=== PATIENT | female | born 1995 | race American Indian/Alaskan Native ===

== ENCOUNTER 2018-03-09 14:01 | Emergency (ER) | payer BC ==
[2018-03-09 15:02] LABS: Basophils # (Auto) 0.1 K/mm3 (0.0-0.1); Basophils % (Auto) 1.1 % (0.0-1.8); Eosinophils % (Auto) 0.5 % (0.0-4.3); Hematocrit 29.1 % (30.3-42.9); Hemoglobin 9.6 gm/dl (10.1-14.3); Lymphocytes # (Auto) 1.5 K/mm3 (1.2-5.4); Lymphocytes % (Auto) 18.6 % (13.4-35.0); Mean Corpuscular HGB Conc 33 % (30-34); Monocytes # (Auto) 0.6 K/mm3 (0.0-0.8); Monocytes % (Auto) 7.7 % (0.0-7.3); Platelet Count 263 K/mm3 (140-440); Red Blood Count 4.41 M/mm3 (3.65-5.03); Red Cell Distribution Width 18.3 % (13.2-15.2)
[2018-03-09 15:10] LABS: Mean Corpuscular Hemoglobin 22 pg (28-32); Mean Corpuscular Volume 66 fl (79-97)
[2018-03-09 15:16] LABS: BUN/Creatinine Ratio 17; Blood Urea Nitrogen 10 mg/dL (7-17); Calcium 9.4 mg/dL (8.4-10.2); Hemolysis Index 8
[2018-03-09 21:06] VITALS: BP 129/83
--- NOTE | 2018-03-09 21:16 | Emergency Department Report ---
ED General Adult HPI - General Chief complaint: Arrhythmia/Palpitations Stated complaint: ANXIETY ATTACK/ABNORMAL HEART RHYTHM Time Seen by Provider: 03/09/18 20:59 Source: patient Mode of arrival: Ambulatory Limitations: No Limitations - History of Present Illness Severity scale (0 -10): 0 - Related Data Allergies Allergy/AdvReac Type Severity Reaction Status Date / Time No Known Allergies Allergy Unverified 03/09/18 14:15 ED Review of Systems ROS: Stated complaint: ANXIETY ATTACK/ABNORMAL HEART RHYTHM Other details as noted in HPI ED Past Medical Hx - Past Medical History Previous Medical History?: No Additional medical history: Anxiety - Surgical History Past Surgical History?: No - Social History Smoking Status: Current Every Day Smoker Substance Use Type: Alcohol ED Physical Exam - General Limitations: No Limitations ED Course Vital Signs 03/09/18 03/09/18 03/09/18 14:08 19:48 21:06 Temperature 98.6 F 98.1 F Pulse Rate 74 63 78 Respiratory 16 18 16 Rate Blood Pressure 125/69 121/78 Blood Pressure 129/83 [Right] O2 Sat by Pulse 100 100 100 Oximetry ED Medical Decision Making - Lab Data Result diagrams: 03/09/18 14:43 03/09/18 14:43 Critical Care Time: No Critical care attestation.: If time is entered above; I have spent that time in minutes in the direct care of this critically ill patient, excluding procedure time. ED Disposition Clinical Impression: Vasovagal reaction Syncope Qualifiers: Syncope type: vasovagal syncope Qualified Code(s): R55 - Syncope and collapse Anemia Qualifiers: Anemia type: iron deficiency Disposition: DC- TO HOME OR SELFCARE Is pt being admited?: No Does the pt Need Aspirin: No Condition: Stable Instructions: Syncope (ED), Hypotension (ED) Additional Instructions: The primary treatment for lightheadedness and vasovagal reaction such as she had today, is one of lying flat, so that your heart and continued to produce adequate blood flow to your brain. Otherwise, the brain begins to malfunction, and you lose consciousness, as happened today. The first maneuver is to place her head between your legs while you're sitting down. Maintain this position for 2-3 minutes. He should get better after that. If you continue to feel worse, and you should lay flat on the floor, and wait for symptoms past, and you will generally feel better within 5-10 minutes. You are also anemic, which means you have a low blood count, as a result of low iron, and the most common cause of this is likely due to heavy bleeding during menstrual cycles. We would like for you to find an iron supplement that you can take, and take this routinely, consider eating increased amounts of red, and follow with your doctor for further evaluation, rechecks of your blood count , and consideration of other treatments or evaluations. Plan to see your primary care doctor within the next day or 2. You may return to work tomorrow, with no restrictions. Referrals: PRIMARY CARE, [Primary Care Provider] - 3-5 Days Forms: Work/School Release Form(ED) Time of Disposition: 21:15
--- NOTE | 2018-03-09 21:29 | Emergency Department Report ---
ED General Adult HPI - General Chief complaint: Arrhythmia/Palpitations Stated complaint: ANXIETY ATTACK/ABNORMAL HEART RHYTHM Time Seen by Provider: 03/09/18 20:59 Source: patient Mode of arrival: Ambulatory Limitations: No Limitations - History of Present Illness Initial comments: Previously healthy 22-year-old woman had a syncopal episode when she came overheated during an office meeting at work earlier this morning. She felt that the room was warm, and she continued to get warm while she was in during the meeting, developed lightheadedness, sweating, and since of anxiety and hyperventilation, and when she got up to stand, she promptly passed out. She was unconscious for less than a minute, had no seizure activity, recovered spontaneously, and EMS evaluated her, recommended emergency Department treatment , which she declined at the time, approximately 8 hours ago. Instead, she followed with her primary care physician at a local urgent care center, with blood work and evaluation done at that time, as well as an EKG, and there is impression was that EKG was abnormal, and that she should have emergency department evaluation. She has been asymptomatic since coming to the emergency department, has been eating and drinking normally, and has been asymptomatic since her recovery. Past medical history is negative, patient enjoys good health, but on further questioning, reports that she is mostly vegetarian, occasional eats meat protein , but almost never ate red meat. She reports that her menstrual cycles are regular, last menstrual cycle was February 06- and was unremarkable. She is nulligravida, is sexually active, does not use contraception, but does not feel , and has no secondary symptoms of early . Onset/Timin -: Sudden, This morning Severity scale (0 -10): 0 Improves with: rest Worsens with: other (syncope on standing) Associated Symptoms: diaphoresis, syncope. denies: nausea/vomiting Treatments Prior to Arrival: none - Related Data Allergies Allergy/AdvReac Type Severity Reaction Status Date / Time No Known Allergies Allergy Unverified 03/09/18 14:15 ED Review of Systems ROS: Stated complaint: ANXIETY ATTACK/ABNORMAL HEART RHYTHM Other details as noted in HPI Comment: All other systems reviewed and negative Constitutional: diaphoresis, weakness ENT: denies: ear pain, throat pain Respiratory: other (past breathing, anxiety). denies: cough, shortness of breath, wheezing Cardiovascular: syncope. denies: chest pain Endocrine: flushing. denies: excessive sweating, intolerance to cold, intolerance to heat, increased hunger, increased thirst, increased urine Gastrointestinal: denies: abdominal pain, nausea, diarrhea Musculoskeletal: denies: back pain, joint swelling, arthralgia Skin: denies: rash, lesions Neurological: denies: headache, weakness, paresthesias Psychiatric: anxiety (reports becoming easily excitable with any stress) Hematological/Lymphatic: denies: easy bleeding, easy bruising ED Past Medical Hx - Past Medical History Previous Medical History?: No Additional medical history: Anxiety, has never had treatment for such - Surgical History Past Surgical History?: No - Social History Smoking Status: Current Every Day Smoker Substance Use Type: Alcohol ED Physical Exam - General Limitations: No Limitations General appearance: alert, in no apparent distress - Head Head exam: Present: atraumatic - Eye Eye exam: Present: normal appearance - ENT ENT exam: Present: mucous membranes moist - Neck Neck exam: Present: normal inspection - Respiratory Respiratory exam: Present: normal lung sounds bilaterally. Absent: respiratory distress, wheezes, rales, rhonchi, chest wall tenderness, accessory muscle use - Cardiovascular Cardiovascular Exam: Present: regular rate, normal rhythm, normal heart sounds. Absent: systolic murmur, diastolic murmur, rubs, gallop, JVD, S3, S4 - GI/Abdominal GI/Abdominal exam: Present: soft, normal bowel sounds. Absent: tenderness - Rectal Rectal exam: Present: deferred - Extremities Exam Extremities exam: Present: normal inspection - Back Exam Back exam: Present: normal inspection - Neurological Exam Neurological exam: Present: alert, oriented X3, CN II-XII intact. Absent: motor sensory deficit - Psychiatric Psychiatric exam: Present: normal affect, normal mood. Absent: anxious - Skin Skin exam: Present: warm, dry, intact, normal color. Absent: rash ED Course Vital Signs 03/09/18 03/09/18 03/09/18 14:08 19:48 21:06 Temperature 98.6 F 98.1 F Pulse Rate 74 63 78 Respiratory 16 18 16 Rate Blood Pressure 125/69 121/78 Blood Pressure 129/83 [Right] O2 Sat by Pulse 100 100 100 Oximetry 03/09/18 21:14 Temperature 97.8 F Pulse Rate Respiratory Rate Blood Pressure Blood Pressure [Right] O2 Sat by Pulse Oximetry - Reevaluation(s) Reevaluation #1: 03/09/18 21:32 Patient is stable after 2 negative troponin levels, blood pressure is 129/84, she is not symptomatic on standing, and feels comfortable and ready for discharge home. ED Medical Decision Making - Lab Data Result diagrams: 03/09/18 14:43 03/09/18 14:43 - EKG Data -: EKG Interpreted by Me (normal EKG and emergency department, with sinus rhythm at 66 bpm, no ectopy) EKG shows normal: sinus rhythm, QRS complexes (normal QRS complexes, no axis deviation or rhythm disturbance.) Rate: normal - EKG Data 03/09/18 21:39 Prior EKG sent over with patient was incorrectly analyzed by computer as atrial fibrillation, but P waves are clearly evident in this tracing, and is also read as incomplete right bundle branch block, which is also incorrect, and patient has normal QRS pattern, with no significant RSR pattern evident. This is essentially normal tracing from urgent care, as well as normal tracing in emergency department. - Medical Decision Making This healthy young woman clearly had a vasovagal syncopal episode, with prompt an unremarkable recovery. It was clearly brought on by overheating in a warm room during her median, which was accentuated by anxiety, and also accentuated by findings of anemia, which patient has not reported before. She's never been diagnosed with anemia, but she is clinically stable, does not need hospitalization, and we discussed sources of increased iron, and although she does not want to eat red meat, she also is not very willing to start iron supplementation. We will recommend increased fluids for the time being, and I recommend that she have follow-up in a week or 2 with her primary care doctor to discuss evaluation of her anemia and additional treatment as necessary. - Differential Diagnosis similar reaction, vasovagal, cardiac syncope Critical Care Time: No Critical care attestation.: If time is entered above; I have spent that time in minutes in the direct care of this critically ill patient, excluding procedure time. ED Disposition Clinical Impression: Vasovagal reaction Syncope Qualifiers: Syncope type: vasovagal syncope Qualified Code(s): R55 - Syncope and collapse Anemia Qualifiers: Anemia type: unspecified type Qualified Code(s): D64.9 - Anemia, unspecified Disposition: DC-01 TO HOME OR SELFCARE Is pt being admited?: No Does the pt Need Aspirin: No Condition: Stable Instructions: Syncope (ED), Hypotension (ED) Additional Instructions: The primary treatment for lightheadedness and vasovagal reaction such as she had today, is one of lying flat, so that your heart and continued to produce adequate blood flow to your brain. Otherwise, the brain begins to malfunction, and you lose consciousness, as happened today. The first maneuver is to place her head between your legs while you're sitting down. Maintain this position for 2-3 minutes. He should get better after that. If you continue to feel worse, and you should lay flat on the floor, and wait for symptoms past, and you will generally feel better within 5-10 minutes. You are also anemic, which means you have a low blood count, as a result of low iron, and the most common cause of this is likely due to heavy bleeding during menstrual cycles. We would like for you to find an iron supplement that you can take, and take this routinely, consider eating increased amounts of red, and follow with your doctor for further evaluation, rechecks of your blood count , and consideration of other treatments or evaluations. Plan to see your primary care doctor within the next day or 2. You may return to work tomorrow, with no restrictions. Referrals: PRIMARY CARE, [Primary Care Provider] - 3-5 Days Forms: Work/School Release Form(ED)
== END 2018-03-09 21:34 | disposition home or self-care (01) ==
LOC: ED 14:01
DX: R55 Syncope and collapse (principal); D64.9 Anemia, unspecified; F17.200 Nicotine dependence, unspecified, uncomplicated
CPT/HCPCS: 36415; 80048; 84484; 85025; 93005; 93010; 99284